=== PATIENT | female | born 1950 | race Caucasian/White ===

== ENCOUNTER 2022-11-22 15:14 | Emergency (ER) | payer MEDICARE, BC, SELFPAY ==
[2022-11-22 15:15] VITALS: BP 194/83; PULSE 104; RESP 18; TEMP 36.6; O2SAT 98; BMI 32.3
--- NOTE | 2022-11-22 15:29 | EX.ED.UPPERE ---
HPI History of Present Illness Chief Complaint: Laceration Informant: patient Occured/Mechanism Mechanism/Context: Yes other see comment below Comment: accidentally cut finger on new mandolin she was using in her kitchen to prepare sourkraut Onset/Context/Timing Onset: Today Context: Sudden Onset Timing: Continuous Quality of Pain: - (sore) Location: L ring finger Current Severity: Mild Maximum Severity: Moderate Worsened by: palpation Relieved by: leaving alone Associated Symptoms Associated Symptoms: Negative for Parasthesia, Weakness or Loss of Funtion Narrative Tetanus Immunization: 5-10 years PFSH PFSH Medical History no medical history no medical history Allergy/AdvReac Type Severity Reaction Status Date / Time [id number]-RQW-IbY Reductase Allergy MUSCLE PAIN Verified 11/22/22 15:16 Inhibitor ROS ROS ED Constitutional Constitutional ED: Denies chills or fever(s) Musculoskeletal Musculoskeletal: Reports extremity pain; Denies neck pain Integumentary Reports wounds; Denies Abrasions or rash Neurologic Neurologic: Denies paresthesias or weakness EXAM Physical Exam Const Vital Signs: 11/22/22 15:15 Temperature 97.8 F Temperature Source Temporal Pulse Rate 104 H Respiratory Rate 18 Blood Pressure 194/83 H Blood Pressure Mean 120 Pulse Ox 98 Oxygen Delivery Method Room Air Positive well nourished and well developed General Appearance ED: well developed and NAD Neck full ROM and supple Back/Spine normal ROM and normal to inspection Extremity full ROM Extremity Narrative: small epidermal skin avulsion into the dermis but not beyond, tip of L ring finger. includes damage to end of part of the nail and associated bed, but overall nail otherwise intact. no lacerations to repair; superficial tissue is lost. no other injuries. Neuro oriented x3, no focal motor deficits and no sensory deficits noted Sensorium / Orientation: alert Psych mental status grossly normal and thought process normal Skin Skin Narrative: partial skin avulsion L ring fingertip, see above. Rashes: no rashes MDM MDM MDM Narrative Medical decision making narrative: Nothing to repair for this wound. Reassured patient, she is not on any antiplatelet or anticoagulant medications, we cleansed it by having her soak in saline and chlorhexidine, followed by applying LET and Surgifoam to the fingertip with a pressure dressing, after reevaluating that with good hemostasis, we replaced it with a clean dressing with bacitracin, supportive care advised. Discharge Plan Triage Chief Complaint: Laceration ED Provider: Marin Simon Dx/Rx/DC Orders Clinical Impression: Avulsion of skin of finger without complication Instructions: ED Skin Avulsion Primary Care Provider: Care Physician,No Primary Referrals: Doctor,Your [Non-Staff] - As Needed Disposition Disposition: Home, Self Care
[2022-11-22] MEDS: Lidocaine/Epi/Tetracaine 50 ML 1 APPLIC TOPICAL (15:43)
== END 2022-11-22 16:08 | disposition home or self-care (01) ==
LOC: ED 15:50
PROVIDERS: Emergency Provider Emergency Medicine; Visit Provider Emergency Medicine
DX: S61.315A Laceration without foreign body of left ring finger with damage to nail, initial encounter (principal); W26.8XXA Contact with other sharp object(s), not elsewhere classified, initial encounter; Y93.G3 Activity, cooking and baking
CPT/HCPCS: 99282